=== PATIENT | female | born 1995 | race Asian ===

== ENCOUNTER 2017-05-06 09:19 | Emergency (ER) | payer OTHER ==
[~2017-05-06] VITALS: Ht 157.5 cm; Wt 68.2 kg
[~2017-05-06 09:19] MED LIST: ATEN25TA PO; METHI5 PO
[2017-05-06] MEDS ORDERED: LIDOCAINE HCL 1% 10 ML VIAL INJ ONE (10:30)
[2017-05-06 11:00] VITALS: BP 125/74
[2017-05-06] MEDS ORDERED: POVIDONE-IODINE 10% 15 ML SOLUTION UD TP ONE (11:15)
== END 2017-05-06 11:52 | disposition home or self-care (01) ==
LOC: EMS 09:21
DX: L02.215 Cutaneous abscess of perineum (principal); R11.0 Nausea; R03.0 Elevated blood-pressure reading, without diagnosis of hypertension
CPT/HCPCS: 56405; 99284; J3490

== ENCOUNTER 2017-05-08 06:19 | Emergency (ER) | payer SELFPAY ==
[~2017-05-08] VITALS: Ht 157.5 cm; Wt 63.6 kg
[2017-05-08] MEDS ORDERED: CEPH500 PO (06:27)
[2017-05-08 07:24] VITALS: BP 126/71
== END 2017-05-08 08:09 | disposition home or self-care (01) ==
LOC: EMS 06:20
DX: Z48.00 Encounter for change or removal of nonsurgical wound dressing (principal)
CPT/HCPCS: 99281

== ENCOUNTER 2019-01-08 17:44 | Emergency (ER) | payer OTHER ==
[~2019-01-08] VITALS: Ht 157.5 cm; Wt 76.4 kg
[~2019-01-08 17:44] MED LIST changes: -ATEN25TA PO; +CEPH500 PO; -METHI5 PO
[2019-01-08] MEDS ORDERED: ONDA4 PO (17:51)
[2019-01-08] MEDS ORDERED: SULF1TAB42 PO (17:51)
[2019-01-08] MEDS ORDERED: KETOROLAC TROMETHAMINE 30 MG/ML VIAL IM ONE (20:30)
[2019-01-08] MEDS ORDERED: CYCLOBENZAPRINE HCL 10 MG TABLET PO ONE (20:30)
[2019-01-08 20:43] VITALS: BP 129/86
== END 2019-01-08 21:07 | disposition home or self-care (01) ==
LOC: EMS 17:44
DX: S13.4XXA Sprain of ligaments of cervical spine, initial encounter (principal); E05.90 Thyrotoxicosis, unspecified without thyrotoxic crisis or storm; Z79.899 Other long term (current) drug therapy; V49.9XXA Car occupant (driver) (passenger) injured in unspecified traffic accident, initial encounter; Y93.89 Activity, other specified; Y92.488 Other paved roadways as the place of occurrence of the external cause; Y99.8 Other external cause status
CPT/HCPCS: 96372; 99283; J1885